=== PATIENT | male | born 1975 | race Asian ===

== ENCOUNTER 2018-08-26 20:27 | Emergency (ER) | payer MEDICAID ==
[2018-08-26] MEDS ORDERED: TDAP ADULT 0.5 ML INJ (BOOSTRIX) IM ONE (20:47)
[2018-08-26] MEDS ORDERED: CEPHALEXIN 500 MG CAP PO ONE (20:56)
--- NOTE | 2018-08-26 21:01 | EDPHY ---
H & P Time Seen by Provider: 08/26/18 20:35 HPI/ROS: This patient sustained a laceration to his left hand at the region of the 2nd finger MCP dorsally using a butter knife when he was trying to work on a door knob. The incident occurred shortly prior to arrival with moderate bleeding moderate pain. He is accompanied by his daughter who translates from his [place] language and his . His daughter is 18 years old. The incident occurred shortly prior to arrival. The bleeding slowed with direct pressure. He has no other injuries or complaints. ROS: Constitutional: No complaints Neuro: No numbness to the area distal to that finger Musculoskeletal: No complaints 5 point review of symptoms is performed and otherwise negative with exception of pertinent positives and negatives listed in HPI and ROS Smoking Status: Never smoked Physical Exam: Physical Exam Vital signs are normal. General: No acute distress Eyes: Pupils equal and react to light. Extraocular motions are intact. Lungs: No respiratory distress. Cardiac: Brisk capillary refill is intact throughout. Pulses are 2+ and symmetric in the affected extremity. Skin: No rash or pallor. Extremities: Atraumatic normal except for left 2nd finger Left 2nd finger: Patient has a complete lacerations to the central slip again dorsal aspect of the finger with weak extension still intact. There is mild bleeding. The skin laceration is 2.3 cm in length and oriented 90 degrees to the long axis of the finger over the MCP joint. There are no foreign bodies on direct examination. Neuro: Alert and oriented x3 with no sensorimotor deficits to the affected digit Initial differential: Finger laceration with extensor tendon laceration. Do not appreciate evidence of bony injury although the joint capsule seems to be open as well Constitutional: Initial Vital Signs Temperature (C) 36.7 C 08/26/18 20:43 Heart Rate 65 08/26/18 20:43 Respiratory Rate 16 08/26/18 20:43 Blood Pressure 113/77 08/26/18 20:43 O2 Sat (%) 95 08/26/18 20:43 O2 Delivery Mode Room Air Allergies/Adverse Reactions: No Known Allergies Allergy (Unverified 08/26/18 20:42) Home Medications: Medication Instructions Recorded NK [No Known Home Meds] 08/26/18 MDM/Departure - MDM Medications Given: Discontinued Medications Cephalexin HCl (Keflex) 500 mg PO EDNOW ONE PRN Reason: Protocol Stop: 08/26/18 20:57 Last Admin: 08/26/18 20:59 Dose: 500 mg Diphtheria/Tetanus/Acell Pertussis (Boostrix) 0.5 ml IM .ONCE ONE Stop: 08/26/18 20:48 Last Admin: 08/26/18 20:52 Dose: 0.5 ml - Depart Disposition: Home, Routine, Self-Care Clinical Impression: Laceration of hand involving extensor tendon Qualifiers: Encounter type: initial encounter Laterality: left Qualified Code(s): S61.412A - Laceration without foreign body of left hand, initial encounter Clinical Impression: (Ruled Out): Hand laceration involving tendon Condition: Good Instructions: Care For Your Stitches (ED) Additional Instructions: Diagnosis: Hand laceration with extensor tendon injury Plan: Keep the wound clean and dry for the next 2 days. Then clean daily with warm soapy water Splint to the hand whenever up and about. Call Dr. Parrish-hand specialist listed below to arrange follow-up appointment this week. Referrals: NONE *PRIMARY CARE P,. [Primary Care Provider] - As per Instructions Noble Parrish MD [Medical Doctor] - As per Instructions
[2018-08-26 21:33] VITALS: BP 110/68
== END 2018-08-26 21:57 | disposition home or self-care (01) ==
LOC: CED 20:27
PROC: 0HQGXZZ Repair Left Hand Skin, External Approach (ICD-10-PCS; principal; 2018-08-26)
DX: S61.412A Laceration without foreign body of left hand, initial encounter (principal); W26.0XXA Contact with knife, initial encounter; Y92.000 Kitchen of unspecified non-institutional (private) residence as the place of occurrence of the external cause; Z23 Encounter for immunization
CPT/HCPCS: 90471-ER; 99283-ER; L3925-ER

== ENCOUNTER 2018-09-11 14:15 | Emergency (ER) | payer MEDICAID ==
--- NOTE | 2018-09-11 14:18 | EDPHY ---
H & P Time Seen by Provider: 09/11/18 14:18 HPI/ROS: HPI CHIEF COMPLAINT: Possible Left Finger wound infection. HISTORY OF PRESENT ILLNESS: This is a 43-year-old male, otherwise healthy without any significant medical history presents emergency room with left hand swelling and redness at his previous laceration site. This was initially sutured and closed on August 26. He did follow up with Hand surgery did not require any surgery he did have a tendon extensor injury. He states he has otherwise been healing well, however over the last 48 hr he noticed increasing swelling and redness. No drainage or pus. No fever. He has localized swelling and redness to the dorsum of the left hand over the 2nd digit MCP, at the previous laceration site. Denies any other specific complaints. Denies significant pain. Of note patient is [place] speaking. A Morning Show Newscast Producer was used For ros, and h+P. and daughter at bedside. Past Medical History: Denies significant medical Past Surgical History: Denies significant surgical history Social History: Lives locally, denies drugs alcohol tobacco. 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. Family History: Noncontributory ROS REVIEW OF SYSTEMS: 10 Systems were reviewed and negative with the exception of the elements mentioned in the history of present illness. Exam Constitutional triage nursing summary reviewed, vital signs reviewed, awake/ alert. Eyes normal conjunctivae and sclera, EOMI, PERRLA. HENT normal inspection, atraumatic, moist mucus membranes, no epistaxis, neck supple/ no meningismus, no raccoon eyes. Respiratory clear to auscultation bilaterally, normal breath sounds, no respiratory distress, no wheezing. Cardiovascular rate normal, regular rhythm, no murmur, no edema, distal pulses normal. Gastrointestinal soft, non-tender, no rebound, no guarding, normal bowel sounds, no distension, no pulsatile mass. Genitourinary no CVA tenderness. Musculoskeletal Left hand: neurovasc intact, good dp, good cap refill, warm extremity. over the dorsum of the hand, specifically 2nd digit, MCP joint, overlying redness/minimal induration/swelling. Full ROM of the joint. No sausage digit, no puss, no fluctuance. No evidence of tensynovitis. no midline vertebral tenderness, full range of motion, no calf swelling, no tenderness of extremities, no meningismus, good pulses, neurovascularly intact. Skin pink, warm, & dry, no rash, skin atraumatic. Neurologic awake, alert and oriented x 3, AAOx3, moves all 4 extremities equally, motor intact, sensory intact, CN II-XII intact, normal cerebellar, normal vision, normal speech. Psychiatric normal mood/affect. Heme/Lymph/Immune no lymphadenopathy. Differential Diagnosis: Includes but is not limited to in a particular order small wound infection, cellulitis, abscess, MRSA infection, strep infection no evidence of joint infection on exam or tendon infection on exam. No evidence of flexor tenosynovitis Medical Decision Making: Plan for this patient recommend warm compresses or warm soaks 2 to 3 times a day for 20 min. Recommend Keflex and Bactrim. Additionally we discussed with the fruit harvest machine operator strict return precautions return emergency room if worsening swelling, redness, pain or not doing well. Should also follow up with Hand surgery. This been discussed at length with him. 1st dose of Keflex and Bactrim given in the emergency room here. Will splint in a luminal form splint of the 2nd digit. Re-evaluation: Source: Patient - Medical/Surgical History Hx Asthma: No Hx Chronic Respiratory Disease: No Hx Diabetes: No Hx Cardiac Disease: No Hx Renal Disease: No Hx Cirrhosis: No Hx Alcoholism: No Hx HIV/AIDS: No Hx Splenectomy or Spleen Trauma: No Other PMH: none - Social History Smoking Status: Never smoked Constitutional: Initial Vital Signs Temperature (C) 36.6 C 09/11/18 14:21 Heart Rate 70 09/11/18 14:21 Respiratory Rate 16 09/11/18 14:21 Blood Pressure 126/88 H 09/11/18 14:21 O2 Sat (%) 96 09/11/18 14:21 O2 Delivery Mode Room Air Allergies/Adverse Reactions: No Known Allergies Allergy (Verified 09/11/18 14:28) Home Medications: Medication Instructions Recorded Cephalexin [Keflex] 500 mg PO Q6H #28 cap 09/11/18 Sulfamethox/Tmp 800/160 mg 1 tab PO BID@1000,2200 #14 tab 09/11/18 [Bactrim Ds] Departure - Departure Disposition: Home, Routine, Self-Care Clinical Impression: Cellulitis Qualifiers: Site of cellulitis: extremity Site of cellulitis of extremity: upper extremity Laterality: left Qualified Code(s): L03.114 - Cellulitis of left upper limb Condition: Good Instructions: Cellulitis (ED) Additional Instructions: 1. WARM COMPRESSES TWO TO THREE TIMES PER DAY FR 20 TO 30 MINUTES. 2. ANTIBIOTICS WITH FOOD, AND PRESCRIBED 3. RETURN TO THE ER IF WORSENING SYMPTOMS, FEVER, SWELLING, DRAINAGE, PAIN, FINGER SWELLING, NOT DOING WELL. 4. FOLLOW UP WITH HAND SURGERY Referrals: NONE *PRIMARY CARE P,. [Primary Care Provider] - As per Instructions Noble Parrish MD [Medical Doctor] - As per Instructions Stand Alone Forms: Work Excuse Prescriptions: Cephalexin [Keflex] 500 mg PO Q6H #28 cap Sulfamethox/Tmp 800/160 mg [Bactrim Ds] 1 tab PO BID@1000,2200 #14 tab
[2018-09-11] MEDS ORDERED: SULFAMETHOX/TMP 800/160 MG 1 TAB PO ONE (14:32)
[2018-09-11] MEDS ORDERED: SULFAMET/TMP DS PREPACK#2 BTL TAKEHOME ONE (14:32)
[2018-09-11] MEDS ORDERED: CEPHALEXIN 500 MG CAP PO ONE (14:32)
[2018-09-11] MEDS ORDERED: CEPHALEXIN 500MG PREPACK#4 BTL TAKEHOME ONE (14:32)
[2018-09-11 14:33] VITALS: BP 126/88
[2018-09-11] MEDS ORDERED: IBUPROFEN 600 MG TAB PO ONE (14:35)
== END 2018-09-11 14:56 | disposition home or self-care (01) ==
LOC: CED 14:15
DX: L03.114 Cellulitis of left upper limb (principal)
CPT/HCPCS: 99284-ER; L3925-ER; L3984-ER